=== PATIENT | female | born 1955 | race Hispanic/Latino ===

== ENCOUNTER → 2024-04-02 | Outpatient (CLI) | payer MEDICARE ==
[~2024-04-02] MED LIST: ATOR40TA71 PO; BUPIvacaine HCL/EPINEPHrine/PF 0.25% 10ML VIAL IJ ONE; COLE1TAB PO; HEParin-NS 1,000 UNIT/500 ML 500 ML IV ONE; HYDR25TA PO; LEVO100T12 PO; LOSA100T59 PO; METF-446 PO; MULT-1203 PO; PANT40TA54 PO; ceFAZolin SODIUM 1 GM VIAL ONE
== END | disposition home or self-care (01) ==
LOC: SHCH 11:03
PROVIDERS: ATTEND Student in an Organized Health Care Education/Training Program
DX: R42 Dizziness and giddiness (principal)
CPT/HCPCS: 93306; J0690; J1644; J3490

== ENCOUNTER → 2024-05-22 | Outpatient (CLI) | payer MEDICARE ==
[~2024-05-22] MED LIST changes: -BUPIvacaine HCL/EPINEPHrine/PF 0.25% 10ML VIAL IJ ONE; -HEParin-NS 1,000 UNIT/500 ML 500 ML IV ONE; +IOHEXOL 350 MG/ML 100ML INFUS..BTL IV ONE; -ceFAZolin SODIUM 1 GM VIAL ONE
--- NOTE | 2024-05-22 11:53 | HMCIMG ---
CT CARDIAC ANGIO W/CONT. CCTA HISTORY: Pain COMPARISON: None TECHNIQUE: Multiple sequential axial images of the chest were obtained along with the CT angiogram of the chest study. Patient was given 100 cc of Omnipaque through intravenous route. FINDINGS: There is no evidence of pulmonary nodule or parenchymal disease. No pleural effusion or pericardial effusion is seen. There is no evidence of pneumothorax. There are normal size mediastinal and hilar lymph nodes. The heart is not enlarged. Degenerative changes of the thoracolumbar spine are present. IMPRESSION: 1. No evidence of pulmonary nodule or effusion is seen. Please see CT angiogram report of coronary arteries.
== END | disposition home or self-care (01) ==
LOC: RAH 07:54
PROVIDERS: ATTEND Student in an Organized Health Care Education/Training Program
DX: R07.9 Chest pain, unspecified (principal); M47.815 Spondylosis without myelopathy or radiculopathy, thoracolumbar region
CPT/HCPCS: 75574; Q9967 ×2